=== PATIENT | female | born 1980 ===

== ENCOUNTER 2022-02-06 11:00 | Day surgery (SDC) | payer OTHER ==
[2022-02-06] MEDS ORDERED: NEURONTIN300 MG PO (14:18)
[2022-02-06] MEDS ORDERED: ULTRAM50 MG PO (14:18)
[2022-02-06] MEDS ORDERED: MIRALAX17 GM PO (14:18)
[2022-02-06] MEDS ORDERED: TYLENOL ARTHRI650 MG PO (14:18)
== END 2022-02-06 17:50 | disposition home or self-care (01) ==
LOC: CIR.AMB 11:00
PROVIDERS: ATTEND Surgery
DX: K43.6 Other and unspecified ventral hernia with obstruction, without gangrene (principal); J32.8 Other chronic sinusitis